=== PATIENT | male | born 1970 | race Caucasian/White ===

== ENCOUNTER 2016-08-30 09:38 | Day surgery (SDC) | payer OTHER ==
[2016-08-30] MEDS ORDERED: ACETAMINOPHEN 500 MG TAB PO ONE (10:00)
[2016-08-30] MEDS ORDERED: ceFAZolin 2 GM/DEXTROSE 100 ML IV ONE (10:00)
[2016-08-30] MEDS ORDERED: BUPIVACAINE/EPI 0.5% 30 ML SDV ONE ×2 (10:10→11:37)
[2016-08-30] MEDS ORDERED: LR 1,000 ML IV ONE (10:45)
[2016-08-30] MEDS ORDERED: MIDAZOLAM 2 MG/2 ML VIAL ONE ×2 (11:24→11:39)
[2016-08-30] MEDS ORDERED: KETOROLAC 30 MG/1 ML SDV ONE (11:39)
[2016-08-30] MEDS ORDERED: METOCLOPRAMIDE 10 MG/2 ML VIAL ONE (11:39)
[2016-08-30] MEDS ORDERED: LIDOCAINE 2% 100 MG/5 ML SYR ONE (11:39)
[2016-08-30] MEDS ORDERED: fentaNYL 100 MCG/2 ML INJ ONE ×3 (11:39→13:15)
[2016-08-30] MEDS ORDERED: DEXAMETHASONE 4 MG/ML VIAL ONE ×2 (11:39)
[2016-08-30] MEDS ORDERED: PROPOFOL 200 MG/20 ML VIAL ONE (11:39)
[2016-08-30] MEDS ORDERED: DESFLURANE 240 ML BOTTLE IH ONE (12:35)
[2016-08-30] MEDS ORDERED: ONDANSETRON 4 MG/2 ML VIAL ONE ×2 (14:41→15:11)
--- NOTE | 2016-08-30 15:23 | GOP ---
[f rep st] OPERATIVE REPORT DATE OF OPERATION: 08/30/2016 SURGEON: Cris Vu MD EDUCATION REPORTER: Darron Hong, CSFA, LSA, whose presence was medically necessary. ANESTHESIA: LMA plus scalene nerve block per surgeon's request. PREOPERATIVE DIAGNOSIS: Left shoulder labral tear with impingement syndrome and acromioclavicular o steoarthritis. POSTOPERATIVE DIAGNOSIS: Left shoulder labral tear with impingement syndrome and acromioclavicular osteoarthritis. with grade II to III chondral changes to the superior portion of the humeral head. PROCEDURE PERFORMED: Left shoulder arthroscopy with labral repair x3 with subacromial decompression , arthroscopic AC resection, debridement of labrum, rotator cuff, subacromial bursa and chondroplast y of the humeral head. FINDINGS: INDICATIONS: This is a 45-year-old male who crashed on a snowboard earlier this year. He had a brennan d pop within his shoulder and had difficulty bringing it back down to his side. He has had pain frank r since. MRI reveals significant tearing to the superior, posterior and anterior portions of the la elizabet along with significant anterior acromial curve and AC osteoarthritis. He wishes to have surger y in order to resolve the problem. DESCRIPTION OF PROCEDURE: Patient was brought to the operating room after the left side had been id entified as the correct side by the patient, nurse and physician. Once in the operating room was gi иван a scalene block on the left side and then placed under general anesthesia using LMA. Once aslee p, he was placed in the beach chair position with the left upper extremity sterilely prepped and micaela ped in the usual fashion using GSI solution. Once prepped and draped, an incision was made __off the posterolateral corner of the acromion with the camera introduced without difficulty. Insp ection of the joint revealed extensive tearing to the anterior, superior and posterior portions of t he labrum. There were noted to be some chondral changes in the superior portion of the humeral head . There were no tears or fraying noted to the rotator cuff or the biceps tendon. Therefore, using an in-to-out technique, an anterior portal was made in the superolateral coracoid process with a 6 x 75 mm threaded cannula placed through the anterior portal. A 3.5 mm smooth shaver was used to debr aggie and debulk the tears of the anterior, superior and posterior portions of the labrum. He was not ed to have fraying but good attachment to the superior and posterior portion of the labrum, but he a vulsed the labrum completely off the anterior portion of the glenoid. Therefore, the anterior porti on of the glenoid had been covered by the labral tear was eburnated using a bur. A 2nd portal was m ilda inferior to the 1st anterior portal exiting just above the subscapularis with an 8 x 75 mm threa ded cannula placed through the 2nd portal. Three drill holes were made at the inferior, middle and superior portions of the exposed glenoid. A #2 FiberWire was woven through and around the glenoid l abrum. They were then attached on the [place] anchors that were driven into the bone with the sutur es cut short. Once completed, all instruments were removed from the shoulder joint, and using the s yared portal sites reintroduced in the subacromial space. A 3rd incision was made 3 cm lateral to the acromial process in line with the posterior cortex of the clavicle with the camera switched to the lateral portal and alternatingly using an arthroscopic Bovie tip and a shaver was used to remove the abundant amount of tissue within the subacromial space. He was noted to have a short sharp inferio r spur at the acromion. Therefore the acrominenizer bur brought through the posterior portal and us ed to remove that spur until achieving a flat ceiling. Attention was then turned to the distal clav icle which was also noted to have a short sharp inferior spur, and this was also removed using a com bination of shaver and bur. Once completed, an 18-gauge spinal needle was used to isolate the poste rior portion of the AC joint. Once found, an incision was made directly over the posterior portion of the AC joint, and using a combination of shaver and bur was used to remove bone from the distal e nd of the clavicle and the medial portion of the acromion. Once an adequate space had been made, th e camera was introduced in the AC joint with a probe brought from the side and perched on the end of the collarbone showing an adequate amount of space between the clavicle and acromion. Once finishe d, all instruments were removed from the subacromial space with 30 cc of Marcaine infused in the sub acromial space. The 5 portal sites were then closed using 3-0 nylon suture in a [id number] typ e stitch. The wounds were dressed with Xeroform, 4 x 4, and Tegaderm. He was completely undraped i n the operating room, had a shoulder immobilizer placed on the left upper extremity. He was then wo juanjo up, extubated, transferred onto a stretcher, and sent to recovery room in good condition. /[id number]/MODL
[2016-08-30] MEDS ORDERED: PROMETHAZINE HCL 25 MG/ML INJ ONE (15:56)
== END 2016-08-30 16:45 | disposition home or self-care (01) ==
LOC: FSGY 09:38
PROVIDERS: ATTEND Orthopaedic Surgery
PROC: 0PBB4ZZ Excision of Left Clavicle, Percutaneous Endoscopic Approach (ICD-10-PCS; principal; 2016-08-30 11:00)
PROC: 0RQH4ZZ Repair Left Acromioclavicular Joint, Percutaneous Endoscopic Approach (ICD-10-PCS; principal; 2016-08-30 11:00)
PROC: 0RBK4ZZ Excision of Left Shoulder Joint, Percutaneous Endoscopic Approach (ICD-10-PCS; principal; 2016-08-30 11:00)
PROC: 0RQK4ZZ Repair Left Shoulder Joint, Percutaneous Endoscopic Approach (ICD-10-PCS; principal; 2016-08-30 11:00)
DX: S43.432A Superior glenoid labrum lesion of left shoulder, initial encounter (principal); M75.42 Impingement syndrome of left shoulder; M19.012 Primary osteoarthritis, left shoulder; Y93.23 Activity, snow (alpine) (downhill) skiing, snowboarding, sledding, tobogganing and snow tubing; V00.311A Fall from snowboard, initial encounter
CPT/HCPCS: C1713; J0171; J0690; J1100; J1885; J2001; J2250; J2405; J2550; J2704; J2765; J3010